=== PATIENT | male | born 1985 | race Caucasian/White ===

== ENCOUNTER 2016-03-27 19:52 | Emergency (ER) | payer MEDICAID, OTHER ==
[~2016-03-27] VITALS: Ht 185.4 cm; Wt 162.5 kg
[~2016-03-27 19:52] MED LIST: ARIP2TAB10 PO; Lithium Carbonate PO; [UNRECOGNIZED DRUG - REMARK] PO; diphenHYDramine PO
[2016-03-27 20:10] VITALS: BP 124/86; PULSE 103; RESP 18; O2SAT 94
[2016-03-27 21:00] LABS: BASOPHILS % (AUTO) 0.3 % (0-3); EOSINOPHILS % (AUTO) 1.2 % (0-5); MONOCYTES % (AUTO) 7.7 % (4-12); Mean Corpuscular Hemoglobin 27.9 pg (27.0-35.0); Mean Corpuscular Volume 83.9 fL (81-100); NEUTROPHILS % (AUTO) 58.8 % (40-74); Platelet Count 287 bil/L (150-400)
[2016-03-27 21:20] LABS: Magnesium 1.9 mg/dL (1.6-2.6)
--- NOTE | 2016-03-27 21:28 | ED.REPORT ---
HPI-General Illness Date of Service Mar 27, 2016 ED Provider: Obey Alvarado MD Patient is an autistic 31 year old male with a history of 10x episodes of diverticulitis with prior perforation and sigmoidectomy who presents to the ED with RLQ abdominal for the past 2 days. He states that the pain is sharp, waxing and waning. He denies any radiation of his pain. He admits to nausea and decreased appetite but denies vomiting, fever, chills, constipation, diarrhea, hematochezia, dysuria, or hematuria. He reports pain with bowel movement and he has been more constipated than usual today. Typically, the patient has liquid bowel movements but today he has only had small hard pieces of stool. The patient has a behavioral aid that spends time with him daily and stated that he appeared to be in pain. Patient is accompanied by his mother, whom he lives with. Nursing Notes Stated Complaint: ABDOMINAL PAIN/SENT FROM URGENT CARE Chief Complaint: Male Abdominal Pain Nursing Notes Reviewed: Yes Allergies: Coded Allergies: oxcarbazepine (Verified Allergy, Severe, MC-MARISSA SYNDROME, 10/09/13) levetiracetam (Verified Allergy, Intermediate, ITCHING AND RED, 10/09/13) felbamate (Verified Allergy, Mild, ITCH, 10/09/13) quetiapine fumarate (Unverified Allergy, Unknown, ACTS OUT, 10/08/13) GROWLS OUT LOUD ON THE MEDS lorazepam (Verified Adverse Reaction, Severe, paradoxal reaction-ACTIVATED , AGITATED, AGGRESSIVE, 10/09/13) amitriptyline (Verified Adverse Reaction, Intermediate, PASSED OUT AT SCHOOL, 10/09/13) carbamazepine (Verified Adverse Reaction, Intermediate, URINATION Q 10 MINUTES, 10/09/13) risperidone (Verified Adverse Reaction, Intermediate, CAUSED PSYCHOSIS AND HIDING UNDER BED, 10/09/13) ziprasidone HCl (Verified Adverse Reaction, Intermediate, ANGRY WILD-EYED , UNRESPONSIVE, 10/09/13) citalopram (Verified Adverse Reaction, Mild, EMOTIONALLY LABILE, 10/09/13) haloperidol (Verified Adverse Reaction, Mild, SCREAMS "HELP, I'M DYING" WANTS TO RUN, 10/09/13) lamotrigine (Verified Adverse Reaction, Mild, SEDATING, 10/09/13) methylphenidate (Verified Adverse Reaction, Mild, COULDN'T SLEEP, 10/09/13) morphine (Verified Adverse Reaction, Mild, nausea, 10/09/13) phenytoin (Verified Adverse Reaction, Mild, TOO SEDATING, 10/09/13) Scheduled ([[place] Carbonate]) 300 MG CAPSULE 300 MG PO BID Aripiprazole (Abilify) 2 Mg Tablet 4 MG PO DAILY Lactulose (Lactulose) 10 Gm/15 Ml Solution 10 GM PO TID Ondansetron ODT (Ondansetron ODT) 8 Mg Tab.rapdis 8 MG PO QID Scheduled PRN ([Trazodone-Expunged Drug, Do Not Renew!]) 50 MG TABLET 50 MG PO HSPMR PRN PRN For Insomnia ([diphenHYDramine]) 50 MG CAPSULE 50 MG PO Q4 PRN PRN For Agitation General Time Seen by MD: 21:21 Chief Complaint Abdominal pain Hx Obtained From: Patient, Other family... 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 Physical Exam Vital Signs Vital Signs Date Time Temp Pulse Resp B/P Pulse Ox O2 Delivery O2 Flow Rate FiO2 03/28/16 01:04 99 16 120/69 94 Room Air 03/27/16 20:10 37.3 103 18 124/86 94 Room Air Initial VS: Reviewed Head / Eyes: Atraumatic, Normocephalic, PERRL ENT: Conjunctiva normal, No scleral icterus Neck: Supple, Full range of motion Respiratory: Breath sounds normal, Clear to auscultation, No respiratory distress Cardiovascular: Regular rate & rhythm, Heart sounds normal Extremities: Vascular intact, Neuro intact Skin: Warm, Dry, No cyanosis Neurologic: Alert, Oriented, Nonfocal Psychiatric: Mood/affect normal, Behavior normal, Normal thought content General/Constitutional: Awake, Alert, No acute distress Appearance / Presentation: Positive: Obese Abdomen: Soft, No guarding, No rebound Tenderness/Guarding/Rebound: Positive: Tender RLQ... Bowel Sounds / Distention: Positive: Bowel sounds hypoactive Interpretation & Diagnostics Lab Results Interpretation Result Diagram: 03/27/16204403/27/162044 Test 03/27/16 20:45 03/27/16 21:09 White Blood Count 9.3th/mm3 (3.8-10.1) Red Blood Count 5.23mil/mm3 (4.40-5.80) Hemoglobin 14.6g/dL (13.8-17.2) Hematocrit 43.9% (41.0-50.0) Mean Corpuscular Volume 83.9fL (81-100) Mean Corpuscular Hemoglobin 27.9pg (27.0-35.0) Mean Corpuscular Hemoglobin Concent 33.3% (32.0-37.0) Red Cell Distribution Width 13.3% (12.3-15.4) Platelet Count 287bil/L (150-400) Neutrophils (%) (Auto) 58.8% (40-74) Lymphocytes (%) (Auto) 31.7% (14-46) Monocytes (%) (Auto) 7.7% (4-12) Eosinophils (%) (Auto) 1.2% (0-5) Basophils (%) (Auto) 0.3% (0-3) Sodium Level 139mEq/L (134-144) Potassium Level 4.0mEq/L (3.5-5.2) Chloride Level 99mEq/L (97-108) Carbon Dioxide Level 25mmol/L (18-29) Blood Urea Nitrogen 12mg/dL (6-20) Creatinine 0.86mg/dL (0.76-1.27) Estimat Glomerular Filtration Rate 111mL/min (>59) Glucose Level 172mg/dL (60-99) Calcium Level 9.2mg/dL (8.5-10.1) Magnesium Level 1.9mg/dL (1.6-2.6) Total Bilirubin 0.2mg/dL (0.0-1.2) Aspartate Amino Transf (AST/SGOT) 33U/L (0-50) Alanine Aminotransferase (ALT/SGPT) 45U/L (0-44) Alkaline Phosphatase 60U/L (25-150) Total Protein 7.6g/dL (6.4-8.4) Albumin 3.9g/dL (3.4-5.0) Lipase 65U/L (13-60) Hold Coker Top Tube Received (Received) Urine Color Yellow (YELLOW) Urine Appearance Clear (CLEAR,HAZY) Urine pH 6.0 (5.0-8.0) Urine Specific [place] 1.025 (1.003-1.035) Urine Protein Negativemg/dL (NEG,TRACE) Urine Glucose (UA) Negativemg/dL (NEGATIVE) Urine Ketones Negativemg/dL (NEGATIVE) Urine Occult Blood Moderate (NEGATIVE) Urine Nitrite Negative (NEGATIVE) Urine Bilirubin Negative (NEGATIVE) Urine Urobilinogen Normalmg/dL (NORMAL) Urine Leukocyte Esterase Negative (NEGATIVE) Urine RBC 3-10/hpf (0-2) Urine WBC 0-5/hpf (0-5) Urine Epithelial Cells None/hpf (NONE-MOD) Urine Crystals None seen (NONE SEEN) Urine Bacteria None/hpf (NONE-FEW) Urine Hyaline Casts None/lpf (NONE) Urine Granular Casts None seen (NONE SEEN) Urine Waxy Casts None seen (NONE SEEN) Urine Red Blood Cell Casts None seen (NONE SEEN) Urine White Blood Cell Casts None seen (NONE SEEN) Urine Mucus None seen (None Seen) Urine Trichomonas None seen (NONE SEEN) Urine Yeast None (NONE SEEN) Urinalysis Comment None Urine Culture Reflexed Indicated CT Abd / Pelvis Interpretation CONCLUSION: Enlarged, fatty liver. Diverticulosis and fecal loading of the colon. Moderate bilateral fat containing ventral hernias in the lateral lower abdomen. No acute intraadominal or intrapelvic abnormality. Radiologist: Tiffanie Billings MD 03/27/2016 - 10:54:15 PM PST Study type: Abdominal CT no contrast Interpretation / Wet Read by: Interpret - Radiologist Re-Eval/Medical Decision Med Decision/Clinical Course 31-year-old autistic man presents with abdominal pain initially fairly exquisite and relatively quiet abdomen. CT scan just shows fecal loading diverticulosis and no acute findings. His appendix is clearly seen and is negative. He is improved just with IV hydration and observation here. Gentle cleaning out with lactulose proposed and mother will undertake that. He is discharged now in stable condition with instructions to return probably if worse. Source of Hx: Old records Time of Eval: 22:13 Re-Evaluation/Progress Note: Rechecked the patient and his mother. Informed his mother of the plan for CT scan. Time of Eval: 00:15 Patient Status: Condition improved Re-Evaluation/Progress Note: Rechecked the patient. Informed his mother of the CT scan results and plan for treatment of constipation. Patient and his mother understand and agree with the plan to be discharged home. Discharge instructions and follow-up discussed. All questions were addressed. Return to the ED warnings given. Counseled Regarding: Diagnosis, Lab results, Need for follow-up, When/why to return to ED Discharge & Departure Shift Change Sign-Out Response to Therapy: Improved Primary Impression: Constipation Constipation type: unspecified constipation type Qualified Code: K59.00 - Constipation, unspecified Additional Impressions: Generalized abdominal pain Autism disorder Disposition: Home Discharge Condition All VS Reviewed: Yes Condition: Stable Patient Instructions: Constipation (ED) Additional Instructions: Begin lactulose 1 tablespoon three times daily until you are having 3-4 semisolid bowel movements daily, then stop. After that, it would be rodrigues to take a fiber supplement every day. Metamucil or similar, one scoop in juice twice daily, or three capsules daily. Follow-up with your doctor in the office. Return for recheck if pain is worsening. You may get a little bit of cramping as your colon starts to move out the accumulated stool, but if she develops vomiting or markedly worse pain, we would rather recheck than not. Referrals: Tyra Schmidt (PCP) Trudy Attestation Portions of this note were transcribed by Jennifer Morel. I, Dr. Alvarado personally performed the history, physical exam and medical decision-making; I reviewed and confirmed the accuracy of the information in the transcribed note. Signed by: Trudy Castellano, 03/28/2016 0047 copies to: SchmidtTyra bosch Christopher W MD Mar 27, 2016 21:28 Jennifer Morel Mar 27, 2016 21:55
[2016-03-27 21:37] LABS: APPEARANCE,URINE CLEAR (CLEAR,HAZY); COLOR,URINE YELLOW (YELLOW); OCCULT BLOOD,URINE MODERATE (NEGATIVE); UROBILINOGEN,URINE NORMAL (NORMAL)
[2016-03-27] MEDS ORDERED: Ondansetron 2 mg/mL 2 mL Inj IVPUSH ONE (21:50)
[2016-03-27] MEDS: HYDROmorphone 1 mg/mL Inj IVPUSH PRN ×2 (22:14→23:05)
[2016-03-28] MEDS ORDERED: Lactulose 20 Gm/30 mL 30 mL Syrup PO ONE (00:20)
[2016-03-28] MEDS ORDERED: ONDA8TAB10 PO (00:28)
[2016-03-28] MEDS ORDERED: LAC10 PO (00:28)
[2016-03-28] MEDS: HYDROmorphone 1 mg/mL Inj IVPUSH PRN (00:59)
[2016-03-28 01:04] VITALS: BP 120/69; PULSE 99; RESP 16; O2SAT 94
--- NOTE | 2016-03-28 08:50 | DRSVH ---
PROCEDURE: CT ABDOMEN AND PELVIS WITH CONTRAST ([id number]) INDICATIONS: rlq pain TECHNIQUE: After the administration of intravenous contrast, 5 mm thick sections acquired from the diaphragm to the symphysis. 5 mm coronal and sagittal reformats were acquired. For radiation dose reduction, the following was used: automated exposure control, adjustment of mA and/or kV according to patient siz e. COMPARISON: None. FINDINGS: Image quality: Excellent. ABDOMEN: Lung bases: Lung bases are clear. Heart size is normal. Solid organs: Liver and spleen are normal in enhancement. Diffuse fatty infiltration liver is noted. Gallbladder is within normal limits. Biliary system is non dilated. Pancreas enhances normally. N o adrenal nodules. Kidneys demonstrate normal size and enhancement, without hydronephrosis. Peritoneum and bowel: Bowel loops demonstrate normal wall thickness. Scattered diverticula are noted in the colon without evidence diverticulitis. Anastomotic sutures in the sigmoid colon and a loop of small bowel. Fecal material is noted adjacent to the anastomotic suture in a loop of small bowel alexis picious for partial, low grade obstruction. No free fluid or air. Nodes and vessels: No retroperitoneal or mesenteric adenopathy by size criteria. Aorta and inferior vena cava are normal in size. Miscellaneous: Bilateral and umbilical fat-containing ventral hernias are noted. No ventral hernias w hich contain loops of bowel identified. PELVIS: Genitourinary: Bladder wall thickness is normal. Miscellaneous: No inguinal hernias or adenopathy. Bones: No suspicious bony lesions. No vertebral body compression fractures. IMPRESSION: 1. Mild hepatomegaly with hepatic steatosis.. 2. Multiple fat-containing ventral hernias. 3. Postsurgical changes and evolving small bowel and sigmoid colon. 4. Fecal material noted in a loop of small bowel adjacent to the anastomotic sutures suspicious for l ow-grade, partial obstruction. 5. Colonic diverticulosis without evidence of diverticulitis. Dictated by: Cuca Moran MD, PhD on 03/28/2016 at 8:48 Approved by: Cuca Moran MD, PhD on 03/28/2016 at 8:48
== END 2016-03-28 01:04 | disposition home or self-care (01) ==
LOC: SED 19:52
DX: K59.00 Constipation, unspecified (principal); R10.31 Right lower quadrant pain; F84.0 Autistic disorder; K76.0 Fatty (change of) liver, not elsewhere classified; K43.9 Ventral hernia without obstruction or gangrene; Z88.8 Allergy status to other drugs, medicaments and biological substances; Z88.5 Allergy status to narcotic agent
CPT/HCPCS: 36415; 74177; 80053; 81000; 81002; 83690; 83735; 85025; 87086; 96374; 96375; 96376; 99285; G0463; J1170; J2405; Q9967

== ENCOUNTER 2016-03-31 09:59 | Emergency (ER) | payer OTHER ==
[~2016-03-31] VITALS: Ht 185.4 cm; Wt 159.1 kg
[~2016-03-31 09:59] MED LIST changes: +LAC10 PO; +ONDA8TAB10 PO
[2016-03-31 10:00] VITALS: BP 146/86; PULSE 89; RESP 20; O2SAT 97
--- NOTE | 2016-03-31 10:04 | ED.REPORT ---
HPI-Abd Pain M Under 41 Date of Service Mar 31, 2016 ED Provider: Dr. Aguilar Patient is an autistic 31 year old male with a history of 10x episodes of diverticulitis with prior perforation and sigmoidectomy who presents to the ED due to severe intermittent RLQ pain for 6 days. Pt was seen in the ED on and had a CT which showed Mild hepatomegaly with hepatic steatosis, Multiple fat-containing ventral hernias, Postsurgical changes and evolving small bowel and sigmoid colon, Fecal material noted in a loop of small bowel adjacent to the anastomotic sutures suspicious for low-grade, partial obstruction and Colonic diverticulosis without evidence of diverticulitis. His pain improved slightly since his previous visit, then got much worse today. The pain is the similar to his previous visit. Pt reports nausea, but denies vomiting, fever. His last BM was 30 minutes ago. Pt has had constipation and is currently taking Lactulose. Nursing Notes Stated Complaint: ABDOMINAL PAIN Chief Complaint: Male Abdominal Pain Nursing Notes Reviewed: Yes Allergies: Coded Allergies: oxcarbazepine (Verified Allergy, Severe, MC-MARISSA SYNDROME, 10/09/13) levetiracetam (Verified Allergy, Intermediate, ITCHING AND RED, 10/09/13) felbamate (Verified Allergy, Mild, ITCH, 10/09/13) quetiapine fumarate (Unverified Allergy, Unknown, ACTS OUT, 10/08/13) GROWLS OUT LOUD ON THE MEDS lorazepam (Verified Adverse Reaction, Severe, paradoxal reaction-ACTIVATED , AGITATED, AGGRESSIVE, 10/09/13) amitriptyline (Verified Adverse Reaction, Intermediate, PASSED OUT AT SCHOOL, 10/09/13) carbamazepine (Verified Adverse Reaction, Intermediate, URINATION Q 10 MINUTES, 10/09/13) risperidone (Verified Adverse Reaction, Intermediate, CAUSED PSYCHOSIS AND HIDING UNDER BED, 10/09/13) ziprasidone HCl (Verified Adverse Reaction, Intermediate, ANGRY WILD-EYED , UNRESPONSIVE, 10/09/13) citalopram (Verified Adverse Reaction, Mild, EMOTIONALLY LABILE, 10/09/13) haloperidol (Verified Adverse Reaction, Mild, SCREAMS "HELP, I'M DYING" WANTS TO RUN, 10/09/13) lamotrigine (Verified Adverse Reaction, Mild, SEDATING, 10/09/13) methylphenidate (Verified Adverse Reaction, Mild, COULDN'T SLEEP, 10/09/13) morphine (Verified Adverse Reaction, Mild, nausea, 10/09/13) phenytoin (Verified Adverse Reaction, Mild, TOO SEDATING, 10/09/13) Scheduled ([[place] Carbonate]) 300 MG CAPSULE 300 MG PO BID Aripiprazole (Abilify) 2 Mg Tablet 4 MG PO DAILY Lactulose (Lactulose) 10 Gm/15 Ml Solution 10 GM PO TID Ondansetron ODT (Ondansetron ODT) 8 Mg Tab.rapdis 8 MG PO QID Scheduled PRN ([Trazodone-Expunged Drug, Do Not Renew!]) 50 MG TABLET 50 MG PO HSPMR PRN PRN For Insomnia ([diphenHYDramine]) 50 MG CAPSULE 50 MG PO Q4 PRN PRN For Agitation General Time Seen by MD: 10:04 Chief Complaint Abdominal pain Hx Obtained From: Patient, Other family... 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 Physical Exam Initial Vital Signs Vital Signs (First) Date Time Temp Pulse Resp B/P Pulse Ox O2 Delivery O2 Flow Rate FiO2 03/31/16 10:00 36.8 89 20 146/86 97 Room Air Initial VS: Reviewed Head / Eyes: Atraumatic, Normocephalic, PERRL ENT: Mucous membranes moist, Conjunctiva normal, No scleral icterus Neck: Full range of motion Skin: Warm, Dry, No cyanosis Neurologic: Alert, Oriented, Nonfocal General/Constitutional: Awake, Alert Respiratory / Chest: Breath sounds NL, Breath sounds = bilat, No respiratory distress, No rales, No rhonchi, No wheezing, No stridor Cardiovascular: Heart rate NL, Regular rhythm, Heart sounds NL, Peripheral circulation NL Abdomen: Soft, No guarding, BS normoactive Tenderness/Guarding/Rebound: Positive: Tender RLQ..., Tender RUQ... Back: Atraumatic, Inspection NL Interpretation & Diagnostics Lab Results Interpretation Result Diagram: 03/31/16 1039 03/31/16 1039 Test 03/31/16 10:39 White Blood Count 7.7th/mm3 (3.8-10.1) Red Blood Count 5.52mil/mm3 (4.40-5.80) Hemoglobin 15.5g/dL (13.8-17.2) Hematocrit 46.6% (41.0-50.0) Mean Corpuscular Volume 84.4fL (81-100) Mean Corpuscular Hemoglobin 28.1pg (27.0-35.0) Mean Corpuscular Hemoglobin Concent 33.3% (32.0-37.0) Red Cell Distribution Width 13.5% (12.3-15.4) Platelet Count 320bil/L (150-400) Neutrophils (%) (Auto) 62.8% (40-74) Lymphocytes (%) (Auto) 27.4% (14-46) Monocytes (%) (Auto) 6.9% (4-12) Eosinophils (%) (Auto) 2.3% (0-5) Basophils (%) (Auto) 0.3% (0-3) Sodium Level 139mEq/L (134-144) Potassium Level 4.7mEq/L (3.5-5.2) Chloride Level 98mEq/L (97-108) Carbon Dioxide Level 27mmol/L (18-29) Blood Urea Nitrogen 10mg/dL (6-20) Creatinine 0.96mg/dL (0.76-1.27) Estimat Glomerular Filtration Rate 98mL/min (>59) Glucose Level 174mg/dL (60-99) Calcium Level 9.5mg/dL (8.5-10.1) Total Bilirubin 0.4mg/dL (0.0-1.2) Aspartate Amino Transf (AST/SGOT) 52U/L (0-50) Alanine Aminotransferase (ALT/SGPT) 60U/L (0-44) Alkaline Phosphatase 66U/L (25-150) Total Protein 8.2g/dL (6.4-8.4) Albumin 4.3g/dL (3.4-5.0) Lipase 59U/L (13-60) General Lab Results Interp 1: Labs reviewed X-Ray Abdominal Interpretation IMPRESSION: No acute cardiopulmonary or intra-abdominal findings. Dictated by: Nafisa Harris M.D. on 03/31/2016 at 11:02 Study: 2 view Interpretation / Wet Read by: Interpret - Radiologist Re-Eval/Medical Decision Source of Hx: Old records Re-Evaluation/Progress : Time of Eval: 11:28 Re-Evaluation/Progress Note: Pain has improved. Updated pt of labs and imaging results. Discussed plan for discharge and follow up. All questions addressed. Counseled Regarding: Diagnosis, Lab results, Need for follow-up, When/why to return to ED Patient Discharge & Departure Primary Impression: Abdominal pain Abdominal location: right lower quadrant Qualified Code: R10.31 - Right lower quadrant pain Disposition: Home Discharge Condition All VS Reviewed: Yes Condition: Improved Patient Instructions: Acute Abdominal Pain (ED) Additional Instructions: There was no dangerous cause for your symptoms identified today. Discontinue lactulose. You can also use Magnesium citrate to help with this, drink one whole bottle this afternoon.. Try to use the Miralax daily after this to help keep your bowels regular. Return tot he ER for fever, vomiting or for any new or concerning symptoms. Follow up with your doctor. Referrals: Tyra Schmidt (PCP) Scribe Attestation Portions of this note were transcribed by Akosua Hernandez. I, (Dr. Aguilar) personally performed the history, physical exam and medical decision-making; I reviewed and confirmed the accuracy of the information in the transcribed note. Signed by: Akosua Hernandez. 03/31/2016, 1133 copies to: Tyra Schmidt Kirk H MD Mar 31, 2016 10:04 Akosua Hernandez Mar 31, 2016 10:19 Akosua Hernandez Mar 31, 2016 10:19
[2016-03-31] MEDS ORDERED: HYDROmorphone 0.5 mg/0.5 mL iSecure Syringe IVPUSH PRN (10:05)
[2016-03-31] MEDS ORDERED: MetoCLOpramide 5 mg/mL 2 mL Inj IVPUSH ONE (10:05)
[2016-03-31] MEDS ORDERED: 0.9% Sodium Chloride 1,000 ML IV ONE (10:05)
[2016-03-31] MEDS ORDERED: Ondansetron 2 mg/mL 2 mL Inj IVPUSH PRN (10:15)
[2016-03-31 10:52] LABS: BASOPHILS % (AUTO) 0.3 % (0-3); EOSINOPHILS % (AUTO) 2.3 % (0-5); MONOCYTES % (AUTO) 6.9 % (4-12); Mean Corpuscular Hemoglobin 28.1 pg (27.0-35.0); Mean Corpuscular Volume 84.4 fL (81-100); NEUTROPHILS % (AUTO) 62.8 % (40-74); Platelet Count 320 bil/L (150-400)
--- NOTE | 2016-03-31 11:04 | DRSVH ---
PROCEDURE: X-RAY ACUTE ABDOMINAL SERIES ([id number]) INDICATIONS: abdominal pain TECHNIQUE: One view chest and two views of the abdomen were acquired. COMPARISON: [facility], , CHEST 2VW, 04/09/2012, 1:35. FINDINGS: Surgical changes and devices: Surgical clips are projected over the sacrum. Chest: Lungs are clear. Heart size is normal. No pleural effusions. No pneumoperitoneum. Abdomen: Bowel gas pattern is normal. No suspicious calcifications. Visualized solid organ contour s appear normal. Bones: No suspicious bony lesions. IMPRESSION: No acute cardiopulmonary or intra-abdominal findings. Dictated by: Nafisa Harris M.D. on 03/31/2016 at 11:02 Approved by: Nafisa Harris M.D. on 03/31/2016 at 11:02
[2016-03-31 11:52] VITALS: BP 141/81; PULSE 84; RESP 18; O2SAT 97
== END 2016-03-31 11:53 | disposition home or self-care (01) ==
LOC: SED 09:59
DX: R10.31 Right lower quadrant pain (principal); R11.0 Nausea; K59.00 Constipation, unspecified; F84.0 Autistic disorder; Z88.8 Allergy status to other drugs, medicaments and biological substances; Z88.5 Allergy status to narcotic agent
CPT/HCPCS: 36415; 74022; 80053; 83690; 85025; 96361; 96374; 96375; 99285; J1170; J2405; J7030

== ENCOUNTER 2016-04-09 15:30 | Emergency (ER) | payer OTHER ==
[~2016-04-09] VITALS: Ht 185.4 cm; Wt 159.1 kg
[2016-04-09 15:51] VITALS: BP 137/83; PULSE 102; RESP 18; O2SAT 100
--- NOTE | 2016-04-09 16:03 | ED.REPORT ---
HPI-General Illness Date of Service Apr 09, 2016 ED Provider: Justo Holt MD 31 year old male with a history of high-functioning autism, seizures, and panic attacks presents to the ER via EMS accompanied by his mother due to altered mental status onset several hours ago. He complains of heart palpitations at symptom onset. Mother states that symptoms presented with inability to speak, and redness of the right eye. She denies fever, chills, vomiting, and any other current illness. Patient has had similar episodes that present with redness of one eye and general malaise. He was previously on Lamictal for partial seizure episodes as a child. Nursing Notes Stated Complaint: SEIZURE LIKE ACTIVITY Chief Complaint: Neuro Symptoms/ Deficits Nursing Notes Reviewed: Yes Allergies: Coded Allergies: oxcarbazepine (Verified Allergy, Severe, MC-MARISSA SYNDROME, 04/09/16 ) levetiracetam (Verified Allergy, Intermediate, ITCHING AND RED, 04/09/16) felbamate (Verified Allergy, Mild, ITCH, 04/09/16) quetiapine fumarate (Unverified Allergy, Unknown, ACTS OUT, 04/09/16) GROWLS OUT LOUD ON THE MEDS lorazepam (Verified Adverse Reaction, Severe, paradoxal reaction-ACTIVATED , AGITATED, AGGRESSIVE, 04/09/16) amitriptyline (Verified Adverse Reaction, Intermediate, PASSED OUT AT SCHOOL, 04/09/16) carbamazepine (Verified Adverse Reaction, Intermediate, URINATION Q 10 MINUTES, 04/09/16) risperidone (Verified Adverse Reaction, Intermediate, CAUSED PSYCHOSIS AND HIDING UNDER BED, 04/09/16) ziprasidone HCl (Verified Adverse Reaction, Intermediate, ANGRY WILD-EYED , UNRESPONSIVE, 04/09/16) citalopram (Verified Adverse Reaction, Mild, EMOTIONALLY LABILE, 04/09/16) haloperidol (Verified Adverse Reaction, Mild, SCREAMS "HELP, I'M DYING" WANTS TO RUN, 04/09/16) lamotrigine (Verified Adverse Reaction, Mild, SEDATING, 04/09/16) methylphenidate (Verified Adverse Reaction, Mild, COULDN'T SLEEP, 04/09/16) morphine (Verified Adverse Reaction, Mild, nausea, 04/09/16) phenytoin (Verified Adverse Reaction, Mild, TOO SEDATING, 04/09/16) Scheduled ([[place] Carbonate]) 300 MG CAPSULE 300 MG PO BID Aripiprazole (Abilify) 2 Mg Tablet 4 MG PO DAILY Lactulose (Lactulose) 10 Gm/15 Ml Solution 10 GM PO TID Ondansetron ODT (Ondansetron ODT) 8 Mg Tab.rapdis 8 MG PO QID Scheduled PRN ([Trazodone-Expunged Drug, Do Not Renew!]) 50 MG TABLET 50 MG PO HSPMR PRN PRN For Insomnia ([diphenHYDramine]) 50 MG CAPSULE 50 MG PO Q4 PRN PRN For Agitation General Time Seen by MD: 16:02 Chief Complaint Altered mental status Hx Obtained From: Patient, Other family... (Mother) Arrived By: Ambulance Sudden in Onset?: Yes Onset Occurred: 1 - 4 hours ago Symptom Duration: Since onset Associated with: Denies: Chest pain, Fever, Nausea, Vomiting Similar Sx Previous: Yes Past Medical History Past Medical History Autism spectrum disorder - developmentally 6 years of age PTSD OCD Panic attacks recurrent diverticulitis Past Surgical History adenoidectomy perforated diverticulitis with prior sigmoidectomy Reports: Tonsillectomy Smoking History Never Smoker Social History Other Social History: Good social support, Lives with parents, Local resident Ambulatory Status Independent Review of Systems Full Review of Systems Constitutional: Denies: Chills, Fever Respiratory: Denies: Non-productive cough, Shortness of breath Cardiovascular: Reports: Palpitations GI: Denies: Abdominal pain, Diarrhea, Nausea, Vomiting Neurologic: Reports: Change LOC, Unable to speak, Denies: Numbness, Seizure, Weakness Psychiatric: Reports: Anxiety Complete sys rev & neg: except as marked. Physical Exam HR is 102, not significantly elevated from baseline which ranges from 80's to 100's. Vital Signs Vital Signs Date Time Temp Pulse Resp B/P Pulse Ox O2 Delivery O2 Flow Rate FiO2 04/09/16 17:22 98 18 112/63 100 Room Air 04/09/16 17:08 98 18 112/63 100 Room Air 04/09/16 15:51 37.1 102 18 137/83 100 Room Air Initial VS: Reviewed Head / Eyes: Atraumatic, Normocephalic Neck: Supple, Non-tender, Full range of motion Abdomen / GI: Soft, Non-tender, No guarding, No rebound, No distention Extremities: Vascular intact, Neuro intact, No swelling, No tenderness Skin: Warm, Dry, No cyanosis General/Constitutional: Awake, Alert, Well developed, Well nourished Appearance / Presentation: Positive: Obese Syndromic appearance. Respiratory / Chest: Breath sounds NL, No respiratory distress, No rales, No rhonchi, No wheezing Cardiovascular: Heart rate NL, Regular rhythm, Heart sounds NL, Cap refill not delayed, Peripheral circulation NL Neurologic: Oriented X3, Speech NL, No motor deficits, No sensory deficits Psychiatric: Not suicidal, Not homicidal Abnormal Mood/Affect: Positive: Flat affect Interpretation & Diagnostics Lab Results Interpretation Result Diagram: 04/09/16 1626 04/09/16 1626 Test 04/09/16 16:26 White Blood Count 7.1th/mm3 (3.8-10.1) Red Blood Count 5.35mil/mm3 (4.40-5.80) Hemoglobin 15.0g/dL (13.8-17.2) Hematocrit 45.1% (41.0-50.0) Mean Corpuscular Volume 84.3fL (81-100) Mean Corpuscular Hemoglobin 28.0pg (27.0-35.0) Mean Corpuscular Hemoglobin Concent 33.3% (32.0-37.0) Red Cell Distribution Width 13.2% (12.3-15.4) Platelet Count 302bil/L (150-400) Neutrophils (%) (Auto) 59.4% (40-74) Lymphocytes (%) (Auto) 27.7% (14-46) Monocytes (%) (Auto) 9.9% (4-12) Eosinophils (%) (Auto) 2.4% (0-5) Basophils (%) (Auto) 0.3% (0-3) Sodium Level 137mEq/L (134-144) Potassium Level 4.2mEq/L (3.5-5.2) Chloride Level 98mEq/L (97-108) Carbon Dioxide Level 24mmol/L (18-29) Blood Urea Nitrogen 9mg/dL (6-20) Creatinine 0.89mg/dL (0.76-1.27) Estimat Glomerular Filtration Rate 107mL/min (>59) Glucose Level 133mg/dL (60-99) Calcium Level 9.6mg/dL (8.5-10.1) Magnesium Level 1.9mg/dL (1.6-2.6) Total Bilirubin 0.3mg/dL (0.0-1.2) Aspartate Amino Transf (AST/SGOT) 40U/L (0-50) Alanine Aminotransferase (ALT/SGPT) 52U/L (0-44) Alkaline Phosphatase 60U/L (25-150) Troponin T < 0.010ug/L (0.0-0.011) Total Protein 7.5g/dL (6.4-8.4) Albumin 4.2g/dL (3.4-5.0) Hold [place] Top Tube Received (Received) ECG Interpretation ECG Interpretation: Sinus tachycardia Left axis deviation Normal intervals Borderline ST elevation consistent with J point elevation No prior ECG available for comparison Time: 17:02 Interpreted by: ED physician Re-Eval/Medical Decision Med Decision/Clinical Course 31 year old male with a history of high-functioning autism, seizures, and panic attacks presents to the ER via EMS accompanied by his mother due to a constellation of symptoms occurring several hours ago during which he "did not feel right", may have had some chest discomfort and a high level of anxiety. Symptoms are now completely resolved. HR is 102, not significantly elevated from baseline which ranges from 80's to 100's. Vital signs otherwise stable and he is afebrile. Overall presentation quite vague in nature. EKG was obtained interpreted by myself as documented above and demonstrated no acute ischemic changes. He now feels completely back to baseline. Presentation on Coumadin for pulmonary embolism, acute coronary syndrome or acute neurologic emergency. I had a long discussion with the patient and his mother. The patient stated that he felt that he had a panic attack and his mother agreed with this. I offered him admission and further work up however they stated that they felt reassured and did not want to proceed with further testing. They preferred to be discharged home and return should he develop any new or recurrent symptoms. I feel that this is an appropriate course of action at this time. They were provided with follow-up and return precautions and discharged in good condition. Source of Hx: Old records Time of Eval: 17:06 Re-Evaluation/Progress Note: Discussed plan to discharge. Patient is amenable to the plan. Return precautions given. All other questions addressed. Counseled Regarding: Diagnosis, Lab results, Need for follow-up, When/why to return to ED Discharge & Departure Primary Impression: Panic attack Additional Impressions: Anxiety Chest pain Chest pain type: unspecified Qualified Code: R07.9 - Chest pain, unspecified Autism Cognitive and behavioral changes Disposition: Home Discharge Condition All VS Reviewed: Yes Condition: Stable Additional Instructions: Thank you for seeking care at emergency room. It is difficult for us to make definitive diagnoses in the ED but we believe that you are experiencing a panic attack. Our primary goal today in the ED was to evaluate you for any life-threatening conditions. Your evaluation was reassuring. You should follow-up with your primary doctor or therapist this week. You should return to the ED immediately if you develop chest pain, shortness of breath, worsening confusion, weakness on one side of the body, or any other concerning signs or symptoms. Thank you for letting us partake in your care today. Referrals: Tyra Schmidt (PCP) Trudy Attestation Portions of this note were transcribed by Juan Oconnor. I, Dr. Holt, personally performed the history, physical exam and medical decision-making; I reviewed and confirmed the accuracy of the information in the transcribed note. Signed by: Trudy Kimball, 04/09/2016 and 17:09 copies to: Tyra Schmidt Beck O MD Apr 09, 2016 16:03 JUAN OCONNOR Apr 09, 2016 17:11
[2016-04-09 16:47] LABS: BASOPHILS % (AUTO) 0.3 % (0-3); EOSINOPHILS % (AUTO) 2.4 % (0-5); MONOCYTES % (AUTO) 9.9 % (4-12); Mean Corpuscular Volume 84.3 fL (81-100); NEUTROPHILS % (AUTO) 59.4 % (40-74); Platelet Count 302 bil/L (150-400)
[2016-04-09 17:08] VITALS: BP 112/63; PULSE 98; RESP 18; O2SAT 100
[2016-04-09 17:12] LABS: TROPONIN T < 0.010 ug/L (0.0-0.011)
[2016-04-09 17:21] LABS: Magnesium 1.9 mg/dL (1.6-2.6)
[2016-04-09 17:22] VITALS: BP 112/63; PULSE 98; RESP 18; O2SAT 100
== END 2016-04-09 17:23 | disposition home or self-care (01) ==
LOC: SED 15:30
DX: F41.0 Panic disorder [episodic paroxysmal anxiety] (principal); R07.89 Other chest pain; F84.0 Autistic disorder; R41.89 Other symptoms and signs involving cognitive functions and awareness; R46.89 Other symptoms and signs involving appearance and behavior; R00.2 Palpitations; Z88.5 Allergy status to narcotic agent; Z88.8 Allergy status to other drugs, medicaments and biological substances

== ENCOUNTER 2016-08-22 00:49 | Emergency (ER) | payer OTHER ==
[~2016-08-22] VITALS: Ht 190.5 cm; Wt 159.1 kg
[2016-08-22 01:05] VITALS: BP 130/80; PULSE 79; RESP 16; O2SAT 97
--- NOTE | 2016-08-22 01:46 | ED.REPORT ---
HPI-Seizure Date of Service Aug 22, 2016 ED Provider: Mani Bean MD Patient is a 31 year old male with a history of autism, hypertension and seizures who presents to the ED via EMS due to a seizure. Associated symptoms include intermittent abdominal pain, right finger numbness and tingling and bilateral leg pain. Around 2200 the patient told his mother he had a severe headache, started foaming at the mouth then he slumped over in a chair and went unconscious. Per the patient's mother, he had slurred speech after the seizure and then lost control of his bladder. He states that after the seizure he experienced dysuria and hematuria. The patient reports that he does not remember the event and that the pain is preventing him from sleeping. The patient's mother also states that he has been having headaches for awhile that have been happening more frequently. Nursing Notes Stated Complaint: SEIZURE Chief Complaint: Seizure Nursing Notes Reviewed: Yes Allergies: Coded Allergies: oxcarbazepine (Verified Allergy, Severe, MC-MARISSA SYNDROME, 04/09/16 ) levetiracetam (Verified Allergy, Intermediate, ITCHING AND RED, 04/09/16) felbamate (Verified Allergy, Mild, ITCH, 04/09/16) quetiapine fumarate (Unverified Allergy, Unknown, ACTS OUT, 04/09/16) GROWLS OUT LOUD ON THE MEDS lorazepam (Verified Adverse Reaction, Severe, paradoxal reaction-ACTIVATED , AGITATED, AGGRESSIVE, 04/09/16) amitriptyline (Verified Adverse Reaction, Intermediate, PASSED OUT AT SCHOOL, 04/09/16) carbamazepine (Verified Adverse Reaction, Intermediate, URINATION Q 10 MINUTES, 04/09/16) risperidone (Verified Adverse Reaction, Intermediate, CAUSED PSYCHOSIS AND HIDING UNDER BED, 04/09/16) ziprasidone HCl (Verified Adverse Reaction, Intermediate, ANGRY WILD-EYED , UNRESPONSIVE, 04/09/16) citalopram (Verified Adverse Reaction, Mild, EMOTIONALLY LABILE, 04/09/16) haloperidol (Verified Adverse Reaction, Mild, SCREAMS "HELP, I'M DYING" WANTS TO RUN, 04/09/16) morphine (Verified Adverse Reaction, Mild, nausea, 04/09/16) phenytoin (Verified Adverse Reaction, Mild, TOO SEDATING, 04/09/16) Scheduled ([[place] Carbonate]) 300 MG CAPSULE 300 MG PO BID Aripiprazole (Abilify) 2 Mg Tablet 4 MG PO DAILY Lactulose (Lactulose) 10 Gm/15 Ml Solution 10 GM PO TID Ondansetron ODT (Ondansetron ODT) 8 Mg Tab.rapdis 8 MG PO QID Scheduled PRN ([Trazodone-Expunged Drug, Do Not Renew!]) 50 MG TABLET 50 MG PO HSPMR PRN PRN For Insomnia ([diphenHYDramine]) 50 MG CAPSULE 50 MG PO Q4 PRN PRN For Agitation General Time Seen by Provider: 01:49 Chief Complaint Chief Complaint: Seizure, focal Hx Obtained From: Patient, Other family... (Mother) Arrived By: Ambulance Onset Occurred: Just prior to arrival Location: : Abdomen: Leg left: Leg right Quality: Cramping, Painful Severity: Current: Moderate Associated with: Reports: Bladder incontinence Recent Healthcare: No recent hospitalization, Recent doctor visit Similar Sx Previous: Yes Past Medical History Past Medical History Autism spectrum disorder - developmentally 6 years of age PTSD OCD Panic attacks recurrent diverticulitis Past Surgical History adenoidectomy perforated diverticulitis with prior sigmoidectomy Reports: Tonsillectomy Smoking History Never Smoker Social History Other Social History: Good social support, Lives with parents, Local resident Ambulatory Status Independent Review of Systems Constitutional: Denies: Fever Respiratory: Denies: Non-productive cough, Shortness of breath Musculoskeletal: Reports: Extremity pain Neurologic: Reports: Bladder dysfunction, Change LOC, Headache, Numbness ( right fingers), Seizure, Slurred speech Complete sys rev & neg: except as marked. GI: Reports: Abdominal pain Male: Reports Dysuria, Reports Hematuria Physical Exam Initial Vital Signs Vital Signs (First) Date Time Temp Pulse Resp B/P Pulse Ox O2 Delivery O2 Flow Rate FiO2 08/22/16 01:05 37.0 79 16 130/80 97 Room Air 08/22/16 04:56 2 Initial VS: Reviewed, Vital signs normal General/Constitutional: Awake, Alert Appearance / Presentation: Positive: Obese Neck: Atraumatic, Supple, Full range of motion Respiratory / Chest: Atraumatic, Breath sounds NL, Breath sounds = bilat, No respiratory distress Cardiovascular: Heart rate NL, Regular rhythm, Heart sounds NL Neurologic: Oriented X3, Speech NL, No motor deficits, No sensory deficits neurologically symmetric no focal abnormalities or movements Head / Eyes: Atraumatic, Normocephalic, PERRL, EOMI Abdomen: Atraumatic, Soft, BS normoactive Bowel Sounds / Distention: Positive: Distention mild multiple abdominal wall hernias mildly tympanitic UPPER EXTREMITIES: small 1.5 cm subaceous cyst vs lymphnode in the left axilla no overlying erythema no obvious fluctuance Lower Extremity / Pelvis / MS: Atraumatic, Non-tender, No edema Skin: Atraumatic, Color NL, Warm, Dry tinea rash across chest Psychiatric: Affect NL, Mood NL Interpretation & Diagnostics Lab Results Interpretation Result Diagram: 08/22/16 0100 08/22/16 0100 Test 08/22/16 01:00 08/22/16 01:08 08/22/16 01:30 White Blood Count 10.9th/mm3 (3.8-10.1) Red Blood Count 5.26mil/mm3 (4.40-5.80) Hemoglobin 14.9g/dL (13.8-17.2) Hematocrit 44.4% (41.0-50.0) Mean Corpuscular Volume 84.4fL (81-100) Mean Corpuscular Hemoglobin 28.3pg (27.0-35.0) Mean Corpuscular Hemoglobin Concent 33.6% (32.0-37.0) Red Cell Distribution Width 13.9% (12.3-15.4) Platelet Count 327bil/L (150-400) Neutrophils (%) (Auto) 46.0% (40-74) Lymphocytes (%) (Auto) 38.8% (14-46) Monocytes (%) (Auto) 12.9% (4-12) Eosinophils (%) (Auto) 1.6% (0-5) Basophils (%) (Auto) 0.4% (0-3) Urine Color Yellow (YELLOW) Urine Appearance Clear (CLEAR,HAZY) Urine pH 6.5 (5.0-8.0) Urine Specific [place] 1.013 (1.003-1.035) Urine Protein Negativemg/dL (NEG,TRACE) Urine Glucose (UA) Negativemg/dL (NEGATIVE) Urine Ketones Negativemg/dL (NEGATIVE) Urine Occult Blood Negative (NEGATIVE) Urine Nitrite Negative (NEGATIVE) Urine Bilirubin Negative (NEGATIVE) Urine Urobilinogen Normalmg/dL (NORMAL) Urine Leukocyte Esterase Negative (NEGATIVE) Urine RBC 3-10/hpf (0-2) Urine WBC 0-5/hpf (0-5) Urine Epithelial Cells Few/hpf (NONE-MOD) Urine Crystals None seen (NONE SEEN) Urine Bacteria Few/hpf (NONE-FEW) Urine Hyaline Casts None/lpf (NONE) Urine Granular Casts None seen (NONE SEEN) Urine Waxy Casts None seen (NONE SEEN) Urine Red Blood Cell Casts None seen (NONE SEEN) Urine White Blood Cell Casts None seen (NONE SEEN) Urine Mucus None seen (None Seen) Urine Trichomonas None seen (NONE SEEN) Urine Yeast None (NONE SEEN) Urinalysis Comment None Sodium Level 140mEq/L (134-144) Potassium Level 4.2mEq/L (3.5-5.2) Chloride Level 100mEq/L (97-108) Carbon Dioxide Level 25mmol/L (18-29) Blood Urea Nitrogen 12mg/dL (6-20) Creatinine 0.88mg/dL (0.76-1.27) Estimat Glomerular Filtration Rate 108mL/min (>59) Glucose Level 94mg/dL (60-99) Calcium Level 9.5mg/dL (8.5-10.1) Total Bilirubin 0.3mg/dL (0.0-1.2) Aspartate Amino Transf (AST/SGOT) 34U/L (0-50) Alanine Aminotransferase (ALT/SGPT) 53U/L (0-44) Alkaline Phosphatase 50U/L (25-150) Total Protein 7.8g/dL (6.4-8.4) Albumin 4.4g/dL (3.4-5.0) Hold Purple Top Tube Received (Received) Hold Blue Top Tube Received (Received) Hold Red Top Tube Received (Received) Hold [place] Top Tube Received (Received) Hold Urine Received (Received) Lab values outside NL range: no clinical significance. Lab Results Interpretation: Mildly elevated white blood count CT Head Interpretation CONCLUSION: Normal exam. No acute intracranial abnormality. at 2217 Interpretation / Wet Read by: Interpret - Radiologist CT Abd / Pelvis Interpretation CONCLUSION: Multiple, fat containing ventral hernia. No bowel containing hernia. No bowel obstruction. No acute intraabdominal or intrapelvic abnormality. Normal appendix and bowel, other than diverticulosis. No diverticulitis. at 0306 Interpretation / Wet Read by: Interpret - Radiologist Re-Eval/Medical Decision Med Decision/Clinical Course 31-year-old male with breakthrough seizures. He has been taking his Lamictal as prescribed. Lamictal level is pending and will be available for neurology follow-up. There are no significant abnormalities noted on the laboratory. CT scan was done because of the breakthrough seizure and some increasing headaches over the last several weeks. No source of headache is found. He was also mildly dehydrated. His headache resolved with rehydration. His neck is supple and at this time I am not concerned about meningitis. Re-Evaluation/Progress #1: Time of Eval: 03:35 Patient Status: Mild relief Re-Evaluation/Progress #2: Time of Eval: 04:27 Patient Status: Condition improved Re-Evaluation/Progress Note: Discussed results and plan for discharge. The patient and patient's mother understand and agree to the plan. All questions were addressed. Counseled Regarding: Diagnosis, Lab results, Need for follow-up, When/why to return to ED Discharge & Departure Impression: Primary Impression: Breakthrough seizure Additional Impression: Generalized abdominal pain Disposition: Home Discharge Condition All VS Reviewed: Yes Condition: Stable Patient Instructions: Epilepsy (ED) Additional Instructions: Labs are all essentially normal. CT scan of the head is normal. There is no indication as to why he is having more headaches or seizures. Lamictal level is pending. Talk to his regular doctor later today for recommendations for further evaluation and treatment. Referrals: Lorenza Vidal MD (PCP) Trudy Attestation Portions of this note were transcribed by Amalia Correia. I, Dr. Bean personally performed the history, physical exam and medical decision-making; I reviewed and confirmed the accuracy of the information in the transcribed note. Signed by: Trudy Arzate, 08/22/16 and 0200 copies to: Lorenza Vidal MD, Mani Morataya MD Aug 22, 2016 01:46 Ana María Correia Aug 22, 2016 01:52
[2016-08-22 01:58] LABS: BASOPHILS % (AUTO) 0.4 % (0-3); EOSINOPHILS % (AUTO) 1.6 % (0-5); MONOCYTES % (AUTO) 12.9 % (4-12); Mean Corpuscular Hemoglobin 28.3 pg (27.0-35.0); Mean Corpuscular Volume 84.4 fL (81-100); Platelet Count 327 bil/L (150-400)
[2016-08-22 02:08] LABS: APPEARANCE,URINE CLEAR (CLEAR,HAZY); COLOR,URINE YELLOW (YELLOW); OCCULT BLOOD,URINE NEGATIVE (NEGATIVE); PH,URINE 6.5 (5.0-8.0); UROBILINOGEN,URINE NORMAL (NORMAL)
[2016-08-22] MEDS ORDERED: HYDROmorphone 0.5 mg/0.5 mL iSecure Syringe IVPUSH ONE ×2 (02:25→03:55)
[2016-08-22] MEDS ORDERED: 0.9% Sodium Chloride 1,000 ML IV ONE (03:40)
[2016-08-22 04:56] VITALS: BP 130/72; PULSE 79; RESP 12; O2SAT 96
--- NOTE | 2016-08-22 08:06 | DRSVH ---
PROCEDURE: CT BRAIN WITHOUT CONTRAST ([id number]) INDICATIONS: increasing headaches, seizure TECHNIQUE: Noncontrast 4.5 mm thick angled axial sections acquired from the foramen magnum to the vertex, with c oronal reformats. COMPARISON: None. FINDINGS: Image quality: Excellent. CSF spaces: Basal cisterns are patent. No extra-axial fluid collections. Ventricles are normal in size and shape. Brain: No midline shift. No intracranial masses or hemorrhage. Gamble-white matter interface is norm al. Skull and face: Calvarium and visualized facial bones are intact, without suspicious lesions. Sinuses: Visualized sinuses and mastoids are clear. IMPRESSION: No acute intracranial disease process. Dictated by: Cuca Moran MD, PhD on 08/22/2016 at 8:03 Approved by: Cuca Moran MD, PhD on 08/22/2016 at 8:04
--- NOTE | 2016-08-22 08:13 | DRSVH ---
PROCEDURE: CT ABDOMEN AND PELVIS WITH CONTRAST ([id number]) INDICATIONS: abdominal pain and distention TECHNIQUE: After the administration of intravenous contrast, 5 mm thick sections acquired from the diaphragm to the symphysis. 5 mm coronal and sagittal reformats were acquired. For radiation dose reduction, the following was used: automated exposure control, adjustment of mA and/or kV according to patient siz e. COMPARISON: [facility], CR, XR ABD ACUTE SERIES 3VW, 04/04/2016, 15:10. [facility], CR, XR ABD ACUTE SERIES 3VW, 03/31/2016, 10:11. [facility], CT, CT ABD PELVIS W CON, 03/27/2016, 22:06. [facility], CR, ABD ACUTE SERIES, 02/28/2012, 13:19. [facility], CT, ABD/PELVIS W/CON (PNL), 01/17/2012, 18:42. FINDINGS: Image quality: Excellent. ABDOMEN: Lung bases: Lung bases are clear. Heart size is normal. Solid organs: Liver and spleen are normal in enhancement. Liver is mildly enlarged. Diffuse fatty in filtration of the liver. Gallbladder is within normal limits. Biliary system is non dilated. Pancre as enhances normally. No adrenal nodules. Kidneys demonstrate normal size and enhancement, without hydronephrosis. Peritoneum and bowel: Bowel loops demonstrate normal wall thickness and caliber. Anastomotic sutures noted in the sigmoid colon loop of small bowel which are stable compared to prior examination. A few , scattered, colonic diverticula are noted without evidence of diverticulitis. No free fluid or air. The appendix is normal. Nodes and vessels: No retroperitoneal or mesenteric adenopathy by size criteria. Aorta and inferior vena cava are normal in size. Miscellaneous: Multiple bilateral fat-containing ventral hernias are noted which are not significantl y changed in appearance compared to 03/27/16. No herniated loops of bowel are associated with the vent ral wall hernias. PELVIS: Genitourinary: Bladder wall thickness is normal. Miscellaneous: No inguinal hernias or adenopathy. Bones: No suspicious bony lesions. No vertebral body compression fractures. IMPRESSION: 1. No acute disease process. 2. Mild hepatomegaly with hepatic steatosis. 3. Multiple fat-containing ventral hernia is stable compared to 03/27/2016. 3. Colonic diverticulosis without evidence of diverticulitis. Dictated by: Cuca Moran MD, PhD on 08/22/2016 at 8:05 Approved by: Cuca Moran MD, PhD on 08/22/2016 at 8:12
== END 2016-08-22 04:59 | disposition home or self-care (01) ==
LOC: SED 00:49
DX: R56.9 Unspecified convulsions (principal); F43.10 Post-traumatic stress disorder, unspecified; I10 Essential (primary) hypertension; Z88.5 Allergy status to narcotic agent; Z88.8 Allergy status to other drugs, medicaments and biological substances
CPT/HCPCS: 36415; 70450; 74177; 80053; 81001; 82542; 82948; 85025; 96361; 96374; 96375; 99285; J1170; J7030; Q9967

== ENCOUNTER 2016-09-24 12:00 | Emergency (ER) | payer OTHER ==
[~2016-09-24] VITALS: Ht 185.4 cm; Wt 156.8 kg
[2016-09-24 12:11] VITALS: BP 129/84; PULSE 82; RESP 16; O2SAT 98
[2016-09-24 13:35] LABS: BASOPHILS % (AUTO) 0.3 % (0-3); EOSINOPHILS % (AUTO) 1.7 % (0-5); MONOCYTES % (AUTO) 11.8 % (4-12); Mean Corpuscular Hemoglobin 28.1 pg (27.0-35.0); Mean Corpuscular Volume 81.1 fL (81-100); Platelet Count 267 bil/L (150-400)
--- NOTE | 2016-09-24 13:58 | ED.REPORT ---
HPI-Abd Pain M Under 40 Date of Service Sep 24, 2016 ED Provider: Surinder Alan DO 31 y/o male with a hx of high-functioning autism, HTN, recurrent diverticulitis , multiple colon surgeries and OCD presents to the ED complaining of severe right quadrant abdominal pain, onset 3 days ago. Associated sx include nausea, mild hematochezia, intermittent melena and constipation. The pt was sent here from urgent care for lab workup. The pt was also seen at urgent care 3 days ago for a gout flare up. Nursing Notes Stated Complaint: ABDOMINAL PAIN Chief Complaint: Male Abdominal Pain Nursing Notes Reviewed: Yes Allergies: Coded Allergies: oxcarbazepine (Verified Allergy, Severe, MC-MARISSA SYNDROME, 09/24/16 ) levetiracetam (Verified Allergy, Intermediate, ITCHING AND RED, 09/24/16) felbamate (Verified Allergy, Mild, ITCH, 09/24/16) quetiapine fumarate (Unverified Allergy, Unknown, ACTS OUT, 09/24/16) GROWLS OUT LOUD ON THE MEDS lorazepam (Verified Adverse Reaction, Severe, paradoxal reaction-ACTIVATED , AGITATED, AGGRESSIVE, 09/24/16) amitriptyline (Verified Adverse Reaction, Intermediate, PASSED OUT AT SCHOOL, 09/24/16) carbamazepine (Verified Adverse Reaction, Intermediate, URINATION Q 10 MINUTES, 09/24/16) risperidone (Verified Adverse Reaction, Intermediate, CAUSED PSYCHOSIS AND HIDING UNDER BED, 09/24/16) ziprasidone HCl (Verified Adverse Reaction, Intermediate, ANGRY WILD-EYED , UNRESPONSIVE, 09/24/16) citalopram (Verified Adverse Reaction, Mild, EMOTIONALLY LABILE, 09/24/16) haloperidol (Verified Adverse Reaction, Mild, SCREAMS "HELP, I'M DYING" WANTS TO RUN, 09/24/16) morphine (Verified Adverse Reaction, Mild, nausea, 09/24/16) phenytoin (Verified Adverse Reaction, Mild, TOO SEDATING, 09/24/16) Scheduled ([[place] Carbonate]) 300 MG CAPSULE 300 MG PO BID Aripiprazole (Abilify) 2 Mg Tablet 4 MG PO DAILY Lactulose (Lactulose) 10 Gm/15 Ml Solution 10 GM PO TID Ondansetron ODT (Ondansetron ODT) 8 Mg Tab.rapdis 8 MG PO QID Scheduled PRN ([Trazodone-Expunged Drug, Do Not Renew!]) 50 MG TABLET 50 MG PO HSPMR PRN PRN For Insomnia ([diphenHYDramine]) 50 MG CAPSULE 50 MG PO Q4 PRN PRN For Agitation General Time Seen by MD: 13:51 Chief Complaint Abdominal pain Hx Obtained From: Patient, Other family... (Mother) Arrived By: Walk-in Sudden in Onset?: Yes Onset Occurred: 3 days ago Symptom Duration: Since onset Location: : RUQ Quality: Painful Severity: Current: Severe Severity: Maximum: Severe Similar Sx Previous: Yes Past Medical History Past Medical History Autism spectrum disorder - developmentally 6 years of age PTSD OCD Panic attacks recurrent diverticulitis Past Surgical History adenoidectomy perforated diverticulitis with prior sigmoidectomy Reports: Tonsillectomy Smoking History Never Smoker Social History Other Social History: Good social support, Lives with parents, Local resident Ambulatory Status Independent Review of Systems GI: Reports: Abdominal pain, Constipation, Hematochezia, Melena Complete sys rev & neg: except as marked. Physical Exam Initial Vital Signs Vital Signs (First) Date Time Temp Pulse Resp B/P Pulse Ox O2 Delivery O2 Flow Rate FiO2 09/24/16 12:11 37.3 82 16 129/84 98 Room Air Initial VS: Reviewed Head / Eyes: Atraumatic, Normocephalic Neck: Supple, Non-tender, Full range of motion Extremities: Vascular intact, Neuro intact, No swelling, No tenderness Skin: Warm, Dry, No cyanosis Neurologic: Alert, Oriented, Nonfocal General/Constitutional: Awake, Alert, Cooperative Appearance / Presentation: Positive: Obese Developmentaly delayed Respiratory / Chest: Atraumatic, Breath sounds NL, Breath sounds = bilat, No respiratory distress, No rales, No rhonchi, No wheezing Cardiovascular: Heart rate NL, Regular rhythm, Heart sounds NL, No gallop, No murmurs, No rubs Abdomen: Atraumatic, Soft Tenderness/Guarding/Rebound: Positive: Tender RLQ... (Moderate) Back: Atraumatic, Full range of motion, Painless range of motion Rectum / Perineum: Patient refused exam Interpretation & Diagnostics Lab Results Interpretation Result Diagram: 09/24/16 1322 09/24/16 1322 Test 09/24/16 13:22 7/18/17 15:39 White Blood Count 8.9th/mm3 (3.8-10.1) Red Blood Count 5.49mil/mm3 (4.40-5.80) Hemoglobin 15.4g/dL (13.8-17.2) Hematocrit 44.5% (41.0-50.0) Mean Corpuscular Volume 81.1fL (81-100) Mean Corpuscular Hemoglobin 28.1pg (27.0-35.0) Mean Corpuscular Hemoglobin Concent 34.6% (32.0-37.0) Red Cell Distribution Width 14.0% (12.3-15.4) Platelet Count 267bil/L (150-400) Neutrophils (%) (Auto) 58.0% (40-74) Lymphocytes (%) (Auto) 27.9% (14-46) Monocytes (%) (Auto) 11.8% (4-12) Eosinophils (%) (Auto) 1.7% (0-5) Basophils (%) (Auto) 0.3% (0-3) Sodium Level 141mEq/L (134-144) Potassium Level 4.3mEq/L (3.5-5.2) Chloride Level 102mEq/L (97-108) Carbon Dioxide Level 22mmol/L (18-29) Blood Urea Nitrogen 11mg/dL (6-20) Creatinine 0.88mg/dL (0.76-1.27) Estimat Glomerular Filtration Rate 108mL/min (>59) Glucose Level 90mg/dL (60-99) Calcium Level 9.7mg/dL (8.5-10.1) Magnesium Level 1.9mg/dL (1.6-2.6) Total Bilirubin 0.3mg/dL (0.0-1.2) Aspartate Amino Transf (AST/SGOT) 28U/L (0-50) Alanine Aminotransferase (ALT/SGPT) 39U/L (0-44) Alkaline Phosphatase 51U/L (25-150) Total Protein 8.0g/dL (6.4-8.4) Albumin 4.2g/dL (3.4-5.0) Lipase 45U/L (13-60) Hold Urine Received (Received) CT Abd / Pelvis Interpretation IMPRESSION: 1. No acute findings in the abdomen or pelvis. No evidence of bowel obstruction or inflammation. 2. Postoperative changes with bowel anastomoses as described. 3. Multiple fat filled ventral hernias. 4. Hepatic steatosis. Dictated by: Hunter Hendrix M.D. on 09/24/2016 at 16:45 Approved by: Hunter Hendrix M.D. on 09/24/2016 at 16:51 Study type: Abdominal CT IV contrast Interpretation / Wet Read by: Interpret - Radiologist Re-Eval/Medical Decision Med Decision/Clinical Course No obvious life-threatening cause for abdominal pain. Patient will be discharged. Return precautions given Re-Evaluation/Progress : Time of Eval: 17:33 Re-Evaluation/Progress Note: Rechecked pt. Discussed lab results, imaging results, diagnosis and plan to discharge. Pt and his mother understand and agree with the plan. F/U instructions and RTER warning given. All questions addressed. Counseled Regarding: Diagnosis, Lab results, Need for follow-up, When/why to return to ED Patient Discharge & Departure Primary Impression: Abdominal pain Disposition: Home Discharge Condition All VS Reviewed: Yes Condition: Stable Patient Instructions: Acute Abdominal Pain (ED) Additional Instructions: No obvious life-threatening cause for your pain is identified. Use oxycodone as needed for pain. Call your doctor in the morning for repeat evaluation. Return to the ER as needed if worse. Referrals: Lorenza Vidal MD (PCP) Scribe Attestation Portions of this note were transcribed by Kalee Harkins. I,, personally performed the history, physical exam and medical decision-making;I reviewed and confirmed the accuracy of the information in the transcribed note. Signed by Trudy Urbano. 09/24/16 17:48 copies to: Lorenza Vidal MD, Timothy David PERDUE Sep 24, 2016 13:58 Kalee Harkins Sep 24, 2016 14:20
[2016-09-24 14:01] LABS: Magnesium 1.9 mg/dL (1.6-2.6)
[2016-09-24] MEDS ORDERED: 0.9% Sodium Chloride 1,000 ML IV ONE (14:15)
[2016-09-24] MEDS: HYDROmorphone 0.5 mg/0.5 mL iSecure Syringe IVPUSH PRN ×2 (16:02→17:14)
[2016-09-24] MEDS: Ondansetron 2 mg/mL 2 mL Inj IVPUSH PRN ×2 (16:02→17:14)
--- NOTE | 2016-09-24 16:53 | DRSVH ---
PROCEDURE: CT ABDOMEN AND PELVIS WITH CONTRAST ([id number]) INDICATIONS: RIGHT SIDED ABDOMEN PAIN TECHNIQUE: After the administration of intravenous contrast, 5 mm thick sections acquired from the diaphragm to the symphysis. 5 mm coronal and sagittal reformats were acquired. For radiation dose reduction, the following was used: automated exposure control, adjustment of mA and/or kV according to patient siz e. COMPARISON: CT abdomen and pelvis 08/22/2016 FINDINGS: Image quality: Excellent. ABDOMEN: Lung bases: Lung bases are clear. Heart size is normal. Solid organs: Liver and spleen are normal in size liver again showing uniform hypodensity consistent with fatty infiltration. The spleen measures 10.6 cm craniocaudal. Gallbladder appears normal. Bili polo system is non dilated. Pancreas enhances normally. No adrenal nodules. Kidneys demonstrate nor mal size and enhancement, without hydronephrosis. Peritoneum and bowel: Bowel loops demonstrate normal wall thickness and caliber. Bowel anastomosis i s evident in the right mid abdomen and in the pelvis. Appendix is normal. A few scattered colonic div erticula are present, no diverticulitis seen. No free fluid or air. Nodes and vessels: No retroperitoneal or mesenteric adenopathy by size criteria. Aorta and inferior vena cava are normal in size. Miscellaneous: As previously noted, there are multiple fat filled ventral hernia is, none of which co ntain bowel. PELVIS: Genitourinary: Bladder wall thickness is normal. Prostate and seminal vesicles appear normal. Miscellaneous: No inguinal hernias or adenopathy. Bones: No suspicious bony lesions. No vertebral body compression fractures. IMPRESSION: 1. No acute findings in the abdomen or pelvis. No evidence of bowel obstruction or inflammation. 2. Postoperative changes with bowel anastomoses as described. 3. Multiple fat filled ventral hernias. 4. Hepatic steatosis. Dictated by: Hunter Hendrix M.D. on 09/24/2016 at 16:45 Approved by: Hunter Hendrix M.D. on 09/24/2016 at 16:51
[2016-09-24 18:26] VITALS: BP 112/69; PULSE 74; RESP 16; O2SAT 94
== END 2016-09-24 18:27 | disposition home or self-care (01) ==
LOC: SED 12:00
DX: R10.9 Unspecified abdominal pain (principal); F43.10 Post-traumatic stress disorder, unspecified; I10 Essential (primary) hypertension; Z88.5 Allergy status to narcotic agent; Z88.8 Allergy status to other drugs, medicaments and biological substances
CPT/HCPCS: 36415; 74177; 80053; 83690; 83735; 85025; 87040; 96361; 96374; 96375; 96376; 99285; J1170; J2405; J7030; Q9967